=== PATIENT | female | born 1955 | race Caucasian/White ===

== ENCOUNTER 2016-10-05 17:39 | Emergency (ER) | payer OTHER ==
[~2016-10-05] VITALS: Ht 162.6 cm; Wt 87.1 kg
[~2016-10-05 17:39] MED LIST: ALBUTEROL0.09 MG/A1 INH; ARTHROTEC 50 MG PO; AUGMENTIN 875 M1 TAB PO; BUSPIRONE HCL10 M1 PO; CITALOPRAM HBR40 MG PO; CLARITIN10 MG PO; CODEINE PO; CRESTOR10 M1 PO; DIFLUCAN150 MG PO; ERYC250 MG PO; LISINOPRIL20 M1 PO; MOTRIN800 MG PO; NORCO 325 MG-51 TAB PO; OXYCODONE AND A1 TA2 PO; PERCOCET 5-3251 EACH PO; PREDNISONE 20MG20 MG PO; PROMETHAZINE V120 M1 PO; PROTONIX 40MG T40 MG PO; ROBITUSSIN W/CO10 ML PO; TESSALON PERLE100 MG PO; TRAZODONE HCL50 M1 PO; TYLENOL WITH C1 EACH PO; VITAMIN D250000 UNIT PO; ZITHROMAX Z-PA250 M1 PO; [UNRECOGNIZED DRUG - OTHER] PO
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
[2016-10-05] MEDS ORDERED: CYCLOBENZAPRINE10 M1 PO (20:07)
[2016-10-05] MEDS ORDERED: HYDROCODON-ACE1 EAC2 PO (20:07)
[2016-10-05 20:19] VITALS: BP 110/82
== END 2016-10-05 20:20 ==
LOC: ERH 17:39
DX: S16.1XXA Strain of muscle, fascia and tendon at neck level, initial encounter (principal); S09.90XA Unspecified injury of head, initial encounter; V49.60XA Unspecified car occupant injured in collision with unspecified motor vehicles in traffic accident, initial encounter

== ENCOUNTER 2016-11-03 15:28 | Emergency (ER) | payer OTHER ==
[~2016-11-03] VITALS: Ht 162.6 cm; Wt 88.5 kg
[~2016-11-03 15:28] MED LIST changes: +CYCLOBENZAPRINE10 M1 PO; +HYDROCODON-ACE1 EAC2 PO
[2016-11-03 15:50] VITALS: BP 122/82
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
== END 2016-11-03 16:21 ==
LOC: ERH 15:28
DX: S30.860A Insect bite (nonvenomous) of lower back and pelvis, initial encounter (principal); M62.838 Other muscle spasm; W57.XXXA Bitten or stung by nonvenomous insect and other nonvenomous arthropods, initial encounter

== ENCOUNTER 2017-01-08 18:39 | Emergency (ER) | payer OTHER ==
[~2017-01-08] VITALS: Ht 162.6 cm; Wt 91.6 kg
[2017-01-08 18:51] VITALS: BP 126/89
--- NOTE | 2017-01-08 20:00 | ED NECK/BACK PAIN COMPLAINT ---
History of Present Illness General Chief Complaint: Lower Extremity Problems Stated Complaint: PT HURT HER BACK Source: patient, old records Exam Limitations: no limitations Vital Signs & Intake/Output Vital Signs & Intake/Output Vital Signs Date Time Temp Pulse Resp B/P B/P Pulse O2 O2 Flow FiO2 Mean Ox Delivery Rate 01/08 1851 96.9 86 16 126/89 96 Room Air Allergies Coded Allergies: bupropion (Mild, RASH 11/03/16) aspirin (STOMACH PAIN 11/03/16) NSAIDS (Non-Steroidal Anti-Inflamma (Mild, GASTRIC BYPASS SENSITIVITY 01/08/17) Reconcile Medications Albuterol Sulfate (Albuterol Sulfate Hfa) 0.09 MG/Actuation BLUE 2-4 PUFF INH Q4-6 PRN PRN SHORTNESS OF BREATH 90 MCG PER PUFF Buspirone HCl 10 MG TABLET 1 TAB PO BID MENTAL HEALTH (Reported) Citalopram Hydrobromide (Citalopram HBr) 40 MG TABLET 1 TAB PO DAILY MENTAL HEALTH (Reported) Cyclobenzaprine HCl 10 MG TABLET 1 TAB PO TID SPASMS Ergocalciferol (Vitamin D2) (Vitamin D2) 50,000 UNIT CAPSULE 1 CAP PO QW SUPPLEMENT (Reported) Hydrocodone/Acetaminophen (Hydrocodon-Acetaminophen 5-325) 5 MG-325 MG TABLET 1-2 TAB PO Q4-6 PRN PRN PAIN Lisinopril 20 MG TABLET 1 TAB PO DAILY HEART (Reported) Methocarbamol (Robaxin) 500 MG TABLET 1 TAB PO TID PRN pain Oxycodone HCl/Acetaminophen (Percocet 5-325 MG Tablet) 1 EACH TABLET 1 TAB PO TID PRN BREAKTHROUGH PAIN Oxycodone HCl/Acetaminophen (Percocet 5-325 MG Tablet) 5 MG-325 MG TABLET 1 TAB PO BID PRN pain Rosuvastatin Calcium (Crestor) 10 MG TABLET 1 TAB PO DAILY CHOLESTEROL ( Reported) Trazodone HCl 50 MG TABLET 1 TAB PO QPM SLEEP (Reported) Tylenol With Codeine (Tylenol With Codeine #3 Tablet) 300 MG-30 MG TABLET 1 TAB PO TID PRN PAIN Triage Note: TRIAGE: C/O MUSCLE STRAIN AND BACK PAIN DUE TO HEAVY LIFTING WHILE GARDENING THIS MORNING. WENT TO WORK BUT REMAINS WITH SEVERE PAIN TO R LUMBAR AREA 03/17. TOOK TYLENOL AT 12PM WITH NO RELIEF. DECLINES PAIN MEDS OFFERED IN TRIAGE. UNABLE TO TOLERATE NSAIDS DUE TO GASTRIC BYPASS Triage Nurses Notes Reviewed? yes Onset: Abrupt Duration: day(s): (1), constant, waxing and waning Timing: recent history Quality/Severity: moderate (aching) Location: paraspinous muscles Radiation: none Context: lifting Loss of Consciousness: no loss of consciousness Modifying Factors: movement, rest Associated Symptoms: denies HPI: 61-year-old female presents to ER for evaluation complaining of right-sided lower back pain that began earlier this morning. She states she was gardening lifting a bag of mulch when she saw a snake. She states she dropped a back however twisted her back pain began to have the pain. The patient has a history of sciatica and states this feels similar. The pain is nonradiating and is localized to the right lower back. She did not fall there is no radiation of pain into her abdomen no nausea vomiting no urinary or bowel incontinence no saddle anesthesia no fever no chills. She took Tylenol earlier today without improvement. Pain is worse with range of motion better at rest (PAUL VALIENTE) Past History Travel History Traveled to [place] past 21 day No Medical History Any Pertinent Medical History? 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 No (PAUL VALIENTE) Review of Systems Review of Systems Constitutional: Reports: see HPI. All Other Systems: Reviewed and Negative Comments Review of systems: See HPI, All other systems negative. Constitutional, no chills no fever, no malaise no weight loss HEENT: no sore throat no congestion, no ear pain Cardiovascular: No chest pain , no palpitation , no orthopnea Skin: no rashes, no change in skin Respiratory: No dyspnea no cough no sputum GI: No nausea no vomiting, no diarrhea, : No dysuria No hematuria, no frequency, no discharge Muscle skeletal: No joint pain, no joint swelling, back pain, no neck pain, Neurologic: No numbness no confusion, no headache Psych: No stress no depression,. Heme/endocrine: No bruising no bleeding Immunology: No lymphadenopathy (PAUL VALIENTE) Physical Exam Physical Exam General Appearance: well developed/nourished, no apparent distress, alert, awake Neck: normal inspection, supple, full range of motion Back: normal inspection, muscle spasm DTR: Patellar: 2: L4 Right, L4 Left. Comments: Well-developed well-nourished person in no acute distress HEENT: Normal EENT exam; PERRL, EOMI, HEAD is atraumatic. moist mucous membranes. Neck: Supple, normal range of motion Back: Bilateral paralumbar muscle tenderness palpation of midline tenderness, no CVA tenderness. Full range of motion Cardiovascular: Regular rate and rhythms no murmurs rubs Respiratory: Chest nontender.There were no bony deformities, no asymmetry. No respiratory distress. Patient speaking in full complete sentences. Breath sounds clear to auscultation bilaterally: NO W/R/R Abdomen: Soft, nontender nondistended, no appreciable organomegaly. Normal bowel sounds. No rebound/guarding, , No ascites. Extremity: Positive straight leg raise to the right lower extremity No edema, full range of motion of extremities, normal and equal pulses bilaterally, 5 out of 5 strength noted to bilateral upper and lower extremities Neuro: Alert oriented x3, motor sensory normal There were no obvious focal neurologic abnormalities. Skin: No appreciable rash on exposed skin, skin is warm and dry. Psych: Mood and affect is normal, memory and judgment is normal. (PAUL VALIENTE) Progress Differential Diagnosis: cauda equina syn, herniated disc, myofascial strain, pyelo/UTI, sciatica, spinal cord inj Plan of Care: Patient clinically looks well. Patient has no evidence of radiculopathy. No urinary bowel dysfunction. No numbness in the genital area. Strength intact. Gross sensation intact. Patient resting comfortably and in no apparent distress. Pain is worse with range of motion. Pain is reproducible IN back with no bruising or ecchymosis noted. . Patient is to follow-up with primary care doctor. May need MRI of the lower back at some point time. No concerns for cauda equina at this point time. I considered this diagnosis but patient does not have any symptoms consistent with cauda equina. Patient has no secondary causes of back pain. No cardiac, pulmonary, or abdominal complaints. No abdominal pain on exam. Cardiac pulmonary exam within normal limits. No rashes, afebrile, denies recent weight loss, dizziness, lightheadedness (PAUL VALIENTE) Departure Departure Time of Disposition: 2005 Disposition: HOME OR SELF CARE Condition: Stable Clinical Impression Primary Impression: Lumbar strain Referrals: RICKY PERSON,DOTTIE (PCP/Family) Additional Instructions: Rest interchange ice and heat. Percocet and Robaxin as directed use caution as these medications will make you drowsy. No driving or drinking alcohol while taking bulky primary care physician this week these were sent to [facility] Departure Forms: Customer Survey General Discharge Information Prescriptions: Current Visit Scripts Oxycodone HCl/Acetaminophen (Percocet 5-325 MG Tablet) 1 TAB PO BID PRN pain #10 TAB Methocarbamol (Robaxin) 1 TAB PO TID PRN pain #12 TAB (PAUL VALIENTE) PA/POLISHER [facility] Co-Sign Statement Statement: ED Attending supervision documentation- [] I saw and evaluated the patient. I have also reviewed all the pertinent lab results and diagnostic results. I agree with the findings and the plan of care as documented in the PA's/POLISHER DIAL's documentation. [X] I have reviewed the ED Record and agree with the PA's/POLISHER DIAL's documentation. [] Additions or exceptions (if any) to the PAs/POLISHER DIAL's note and plan are summarized below: [] (MERRITT PERSON,ROHAN)
[2017-01-08] MEDS ORDERED: PERCOCET 5-3251 EACH PO (20:07)
[2017-01-08] MEDS ORDERED: ROBAXIN500 M1 PO (20:07)
== END 2017-01-08 20:19 ==
LOC: ERH 18:39
DX: S39.012A Strain of muscle, fascia and tendon of lower back, initial encounter (principal); X50.0XXA Overexertion from strenuous movement or load, initial encounter; Y93.H2 Activity, gardening and landscaping; Y92.096 Garden or yard of other non-institutional residence as the place of occurrence of the external cause

== ENCOUNTER 2018-03-09 08:22 | Emergency (ER) | payer OTHER ==
[~2018-03-09] VITALS: Ht 160 cm; Wt 91.6 kg
[~2018-03-09 08:22] MED LIST changes: +ALBUTEROL2.5 MG/3 M INH/SOL; +CYCLOBENZAPRINE5 M2 PO; +MONTELUKAST SOD10 M1 PO; +PREDNISONE10 M2 PO; +PROAIR HFA8.5 GM INH; +ROBAXIN500 M1 PO; +SYMBICORT 16010.2 GM INH; +TESSALON PERLE100 M1 PO; +VICODIN 5-3001 EACH PO
[2018-03-09 08:26] VITALS: BP 128/86
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
== END 2018-03-09 09:16 ==
LOC: ERH 08:22
DX: M54.2 Cervicalgia (principal)